=== PATIENT | female | born 1965 | race Caucasian/White ===

== ENCOUNTER → 2018-10-21 | Outpatient (CLI) | payer BC ==
--- NOTE | 2018-10-22 15:02 | RADIOLOGY IMAGING REPORT ---
FACILITY: [facility] PATIENT NAME: NAYE PARK : [id number] MR: [id number] V: [id number] EXAM DATE: [id number] ORDERING PHYSICIAN: BASSAM ROWAN TECHNOLOGIST: Raquel Joseph PROCEDURE:BILATERAL DIGITAL SCREENING MAMMOGRAM WITH CAD ASSISTED INTERPRETATION & 3D TOMOSYNTHESIS COMPARISON:Prior mammograms 04/25/10, 11/19/06, 04/26/01. INDICATIONS:screening FINDINGS: The breasts are heterogeneously dense which can obscure small masses. The parenchymal pattern has remained mostly stable allowing for difference in mammographic technique & patient positioning. There is a suggestion of 2 ovoid densities in the anterior 1/3 of the Left breast on the Left MLO view 1 above the nipple line and 1 below the mid nipple line for which Spot compression view is recommended. DIAGNOSTIC CATEGORY 0--INCOMPLETE: NEED ADDITIONAL IMAGING EVALUATION. RECOMMENDATIONS: ADDITIONAL MAMMOGRAPHIC VIEWS REQUIRED: LEFT BREAST. IMPRESSION: BIRADS 0: Incomplete. Additional views of the Left breast recommended as described. Dictated by: Denise Regalado M.D. on 10/21/2018 at 16:21 Transcribed by: SERGEI on 10/22/2018 at 13:42 Approved by: Denise Regalado M.D. on 10/22/2018 at 15:01 [facility]
== END ==
LOC: MAMO 01:13
PROVIDERS: ATTEND Nurse Practitioner Psychiatric/Mental Health
DX: Z12.31 Encounter for screening mammogram for malignant neoplasm of breast (principal); R92.8 Other abnormal and inconclusive findings on diagnostic imaging of breast
CPT/HCPCS: 77063; 77067

== ENCOUNTER → 2018-11-10 | Outpatient (CLI) | payer BC ==
--- NOTE | 2018-11-12 11:25 | RADIOLOGY IMAGING REPORT ---
FACILITY: [facility] PATIENT NAME: NAYE PARK : [id number] MR: [id number] V: [id number] EXAM DATE: [id number] ORDERING PHYSICIAN: BASSAM ROWAN TECHNOLOGIST: Cheyanne Chandler PROCEDURE:LEFT DIGITAL DIAGNOSTIC MAMMOGRAM WITH CAD ASSISTED INTERPRETATION & 3D TOMOSYNTHESIS COMPARISON:Prior mammograms dated 10/21/18, 04/25/10, 11/19/06, 04/26/01 INDICATIONS:FURTHER EVAL FINDINGS: The patient returned for spot compression view in the Left MLO projection. The 2 ovoid areas in the anterior third of the Left breast identified on the recent Left MLO view appear at least partially compressible. The appearance was more in keeping with the prior mammograms. DIAGNOSTIC CATEGORY 2--BENIGN FINDING. RECOMMENDATIONS: ROUTINE MAMMOGRAM AND CLINICAL EVALUATION. IMPRESSION: BIRADS 2: Benign finding. The Left mammogram appears relatively stable when compared to the prior studies. Dictated by: Denise Regalado M.D. on 11/10/2018 at 17:00 Transcribed by: BRITT on 11/12/2018 at 10:05 Approved by: Denise Regalado M.D. on 11/12/2018 at 11:23 [facility]
== END ==
LOC: MAMO 13:46
PROVIDERS: ATTEND Nurse Practitioner Psychiatric/Mental Health
DX: R92.8 Other abnormal and inconclusive findings on diagnostic imaging of breast (principal)
CPT/HCPCS: 77061; 77065